=== PATIENT | male | born 1995 | race Caucasian/White ===

== ENCOUNTER 2016-07-13 16:27 | Emergency (ER) | payer BC | END 2016-07-13 18:43 | disposition home or self-care (01) | LOC: ER 16:27 | DX: R07.81 Pleurodynia (principal); M79.1 Myalgia; V29.10XA Motorcycle passenger injured in collision with unspecified motor vehicles in nontraffic accident, initial encounter | CPT/HCPCS: 71250; 74176; 99284; A9270-GY ==